=== PATIENT | female | born 1995 | race Caucasian/White ===

== ENCOUNTER 2018-04-06 19:27 | Emergency (ER) | payer SELFPAY ==
[~2018-04-06] VITALS: Ht 154.9 cm; Wt 81.8 kg
[2018-04-06 19:28] VITALS: BP 137/90
--- NOTE | 2018-04-06 22:05 | ED PDOC ---
Post-Departure Follow-Up PT LEFT WITHOUT BEING SEEN BY A PROVIDER. PT WAS BROUGHT INTO AN RCE ROOM AT [facility] E OF [facility] FOR AN EKG. THIS WAS PERFORMED AT THAT TIME, UNDER MY ORDER FOR THE EKG. THE EKG WAS READ BY A PROVIDER AND DEEMED APPROPRIATE TO WAIT IN THE WAITING ROOM, DUE TO LACK OF ROOMS FOR ACTIVE PATIENTS. WHEN PT WAS BROUGHT BACK INTO AN RCE ROOM TO BE SEEN, SHE COULD BE HEARD FROM THE PROVIDER DESK IN [facility], YELLING, CURSING AND ANNOYED THAT SHE CAME IN BY AMBULANCE AND HAD NOT BEEN SEEN YET. SECURITY WAS INFORMED AND THEY STOOD BY THE MTA DESK UNTIL THE SITUATION DE-ESCALATED. SEE NURSING NOTE FOR ENCOUNTER. AT THAT TIME, PT WALKED OUT OF HER RCE ROOM AND INTO THE WAITING ROOM AND LEFT THE FACILITY. PT WAS NOT SEEN BY A PROVIDER. THE EKG DID NOT SHOW ANY ACUTE CHANGES. NO RECOMMENDATIONS AT THIS TIME. CARLOTTA RAMSAY PA-C Apr 06, 2018 22:04
--- NOTE | 2018-04-07 08:11 | ECGEPIP ---
Stationary ECG Study [facility] - ED Test Date: 2018-04-06 Pat Name: MILAD VENEGAS Department: Room: - Gender: F Operational Review Sergeant: mamadou : 1995 Requested By: CARLOTTA Olivo PA-C Order Number: [id number] Reading MD: Cody Santoyo Measurements Intervals [place] Rate: 62 P: 29 IN: 171 QRS: 63 QRSD: 84 T: 29 QT: 411 QTc: 420 Interpretive Statements SINUS RHYTHM BENIGN EARLY REPOLARIZATION NO PRIORS FOR COMPARISON Electronically Signed On 04-07-2018 8:11:29 EST by Cody Santoyo
== END 2018-04-06 21:38 | disposition left against medical advice (07) ==
LOC: M ED 19:27
DX: Z53.29 Procedure and treatment not carried out because of patient's decision for other reasons (principal)

== ENCOUNTER → 2018-05-14 | Outpatient (CLI) | payer OTHER ==
--- NOTE | 2018-05-14 17:18 | REP ---
Clinical: Right foot pain Technique: AP, lateral, bilateral oblique views right foot . Findings: The osseous structures and joint spaces are intact and normal. There is no evidence for acute fracture or dislocation. Surrounding soft tissues are unremarkable. No subcutaneous emphysema or radiodense foreign body. Impression: Normal right foot series . No acute fracture or dislocation. Electronically Signed by Ted Cantrell MD 05/14/2018 05:09 P
== END ==
LOC: M WUC 16:56
PROVIDERS: ATTEND Physician Assistant
DX: M79.671 Pain in right foot (principal)

== ENCOUNTER → 2018-05-17 | Outpatient (CLI) | payer OTHER | LOC: M RAD 15:35 | PROVIDERS: ATTEND Physician Assistant | DX: Z53.9 Procedure and treatment not carried out, unspecified reason (principal) ==

== ENCOUNTER → 2018-05-31 | Outpatient (CLI) | payer OTHER ==
--- NOTE | 2018-05-31 11:55 | REP ---
Pelvic ultrasound including transabdominal, endovaginal and Doppler ultrasound assessment: The bladder is moderately distended. The uterus is anteverted and upper normal size measuring 929 x 5.6 x 6.8 cm. The endometrium is upper normal thickness measuring 15 mm. The myometrium is unremarkable. Right ovary: The the patient has a right nephrectomy. Left ovary: There is a 2.7 x 1.5 x 2.4 cm hemorrhagic cyst. Including this cyst the left ovary is normal size measuring 2.7 x 1.5 x 2.4 cm. With the Doppler ultrasound there is left ovarian vascular flow. The resistive index of the parenchymal arteries measures 0.61. There is a small volume of free fluid in the posterior cul-de-sac. Impression: Right oophorectomy. 2.7 cm left ovarian hemorrhagic cyst. There is vascular flow in the left ovary. Uterus upper normal size. Endometrium upper normal thickness. Electronically Signed by Abelardo Pleitez MD 05/31/2018 11:46 A
[2018-05-31 11:57] LABS: BASO % 0.7 % (0.0-1.0); EOS # 0.1 10^3/uL (0.0-0.50); EOS % 1.8 % (0.0-3.0); HEMATOCRIT 39.6 % (36.0-47.0); HEMOGLOBIN 12.2 g/dl (12.0-15.5); LYMPH # 1.1 10^3/uL (1.5-6.5); MEAN CORPUSCULAR HEMOGLOBIN 25.2 pg (27.0-33.0); MEAN CORPUSCULAR HGB CONC 30.8 g/dl (32.0-36.5); MEAN CORPUSCULAR VOLUME 81.6 fl (80.0-96.0); MONO # 0.2 10^3/uL (0.0-0.8); MONO % 3.9 % (0.0-5.0); NEUTROPHILS # 4.1 10^3/uL (1.8-7.7); NEUTROPHILS % 73.4 % (36.0-66.0); PLATELET COUNT, AUTOMATED 265 10^3/uL (150-450); RED BLOOD COUNT 4.85 10^6/uL (4.00-5.40); WHITE BLOOD COUNT 5.6 10^3/uL (4.0-10.0)
[2018-05-31 12:24] LABS: ALBUMIN 4.1 GM/DL (3.2-5.2); ALT/SGPT 24 U/L (12-78); BILIRUBIN,TOTAL 0.3 MG/DL (0.2-1.0); BLOOD UREA NITROGEN 15 MG/DL (7-18); CALCIUM LEVEL 9.3 MG/DL (8.5-10.1); CARBON DIOXIDE LEVEL 26 MEQ/L (21-32); CHLORIDE LEVEL 108 MEQ/L (98-107); CREATININE FOR GFR 0.73 MG/DL (0.55-1.30); GLOMERULAR FILTRATION RATE > 60.0 (>60); GLUCOSE, FASTING 96 MG/DL (70-100); POTASSIUM SERUM 4.8 MEQ/L (3.5-5.1); SODIUM LEVEL 140 MEQ/L (136-145); TOTAL PROTEIN 7.9 GM/DL (6.4-8.2)
== END ==
LOC: M LAB 10:52
PROVIDERS: ATTEND Physician Assistant
DX: R10.32 Left lower quadrant pain (principal); Z90.5 Acquired absence of kidney; N83.202 Unspecified ovarian cyst, left side

== ENCOUNTER → 2018-05-31 | Outpatient (REF) | payer OTHER ==
[2018-05-31 15:16] LABS: CHLAMYDIA DNA AMPLIFICATION NEGATIVE (NEGATIVE); GC DNA AMPLIFICATION NEGATIVE (NEGATIVE)
== END ==
LOC: M LAB REF 12:26
PROVIDERS: ATTEND Physician Assistant
DX: R10.32 Left lower quadrant pain (principal)

== ENCOUNTER → 2018-07-12 | Outpatient (CLI) | payer OTHER ==
[2018-07-12 16:30] LABS: HEMATOCRIT 34.7 % (36.0-47.0); HEMOGLOBIN 10.8 g/dl (12.0-15.5)
== END ==
LOC: M WUC 15:01
PROVIDERS: ATTEND Physical Medicine & Rehabilitation
DX: Z01.818 Encounter for other preprocedural examination (principal); D64.9 Anemia, unspecified

== ENCOUNTER → 2018-08-11 | Outpatient (CLI) | payer OTHER ==
[2018-08-11 20:13] LABS: BASO # 0.1 10^3/uL (0.0-0.2); BASO % 1.9 % (0.0-1.0); EOS # 0.2 10^3/uL (0.0-0.50); HEMATOCRIT 34.5 % (36.0-47.0); LYMPH # 1.1 10^3/uL (1.5-6.5); LYMPH % 34.9 % (24.0-44.0); MEAN CORPUSCULAR HGB CONC 31.9 g/dl (32.0-36.5); MEAN CORPUSCULAR VOLUME 81.6 fl (80.0-96.0); MONO # 0.3 10^3/uL (0.0-0.8); MONO % 8.4 % (0.0-5.0); NEUTROPHILS # 1.6 10^3/uL (1.8-7.7); NEUTROPHILS % 49.5 % (36.0-66.0); PLATELET COUNT, AUTOMATED 325 10^3/uL (150-450); RED BLOOD COUNT 4.23 10^6/uL (4.00-5.40); WHITE BLOOD COUNT 3.2 10^3/uL (4.0-10.0)
[2018-08-11 20:29] LABS: HEMOGLOBIN A1c 5.5 %
[2018-08-11 20:41] LABS: ALT/SGPT 24 U/L (12-78); BILIRUBIN,TOTAL 0.3 MG/DL (0.2-1.0); BLOOD UREA NITROGEN 16 MG/DL (7-18); CALCIUM LEVEL 8.3 MG/DL (8.5-10.1); CARBON DIOXIDE LEVEL 26 MEQ/L (21-32); CHLORIDE LEVEL 109 MEQ/L (98-107); CHOLESTEROL LEVEL 147 MG/DL (<200); CHOLESTEROL RISK RATIO 3.769 (<5); CREATININE FOR GFR 0.66 MG/DL (0.55-1.30); GLOMERULAR FILTRATION RATE > 60.0 (>60); GLUCOSE, FASTING 71 MG/DL (70-100); HDL CHOLESTEROL 39 MG/DL (>40); LDL CHOLESTEROL 94 MG/DL (<100); NON-HDL-C 108 MG/DL; SODIUM LEVEL 142 MEQ/L (136-145); THYROID STIMULATING HORMONE 0.288 uIU/ML (0.358-3.740); TOTAL PROTEIN 7.5 GM/DL (6.4-8.2); TRIGLYCERIDES LEVEL 70 MG/DL (<150)
[2018-08-11 20:43] LABS: TOTAL 25(OH) VITAMIN D 15.8 NG/ML (30.0-100.0)
[2018-08-11 21:15] LABS: APPEARANCE, URINE MANUAL HAZY (CLEAR); COLOR, URINE MANUAL YELLOW (YELLOW)
[2018-08-11 21:17] LABS: BILIRUBIN, URINE MANUAL NEGATIVE (NEGATIVE); BLOOD URINE MANUAL TRACE (NEGATIVE); GLUCOSE, URINE (UA) MANUAL NEGATIVE (NEGATIVE); KETONE, URINE MANUAL NEGATIVE (NEGATIVE); LEUKOCYTE ESTERASE, URINE MAN NEGATIVE (NEGATIVE); NITRITE, URINE MANUAL NEGATIVE (NEGATIVE); PROTEIN, URINE MANUAL NEGATIVE (NEGATIVE); SPECIFIC GRAVITY,URINE MANUAL 1.025 (1.002-1.035); UROBILINOGEN, URINE MANUAL NORMAL (NORMAL)
[2018-08-11 21:19] LABS: RBC, URINE 0-1 /hpf (0-3); WBC, URINE NONE SEEN /hpf (0-3)
[2018-08-11 21:20] LABS: BACTERIA, URINE SMALL AMOUNT; HYALINE CAST, URINE NONE SEEN /lpf (0-1); SQUAMOUS EPITHELIAL CELL URINE SMALL AMOUNT /hpf (SMALL AMT)
[2018-08-11 22:18] LABS: CHLAMYDIA DNA AMPLIFICATION NEGATIVE (NEGATIVE); GC DNA AMPLIFICATION NEGATIVE (NEGATIVE)
[2018-08-12 10:22] LABS: HEPATITIS B SURFACE ANTIGEN NEGATIVE (NEGATIVE)
[2018-08-12 10:48] LABS: HEPATITIS C VIRUS ABY INDEX 0.1 INDEX (<0.8)
[2018-08-12 10:49] LABS: HEPATITIS B CORE ANTIBODY IGM NEGATIVE (NEGATIVE)
[2018-08-12 10:51] LABS: HEPATITIS A ANTIBODY IGM NEGATIVE (NEGATIVE); HIV 1&2 SCREEN CENTAUR NEGATIVE (NEGATIVE)
[2018-08-16 00:06] LABS: HSV TYPE II IgG SPECIFIC 8.66 index (0.00-0.90); Lyme Disease IgG Ab 18 kDa Ban Absent (.); Lyme Disease IgG Ab 23 kDa Ban Absent (.); Lyme Disease IgG Ab 28 kDa Ban Absent (.); Lyme Disease IgG Ab 30 kDa Ban Absent (.); Lyme Disease IgG Ab 39 kDa Ban Absent (.); Lyme Disease IgG Ab 41 kDa Ban Absent (.); Lyme Disease IgG Ab 45 kDa Ban Absent (.); Lyme Disease IgG Ab 58 kDa Ban Absent (.); Lyme Disease IgG Ab 66 kDa Ban Absent (.); Lyme Disease IgG Ab 93 kDa Ban Absent (.); Lyme Disease IgG West Blot Int Negative (.); Lyme Disease IgG/IgM Antibodie <0.91 ISR (0.00-0.90); Lyme Disease IgM Ab 23 kDa Ban Present (.); Lyme Disease IgM Ab 39 kDa Ban Absent (.); Lyme Disease IgM Ab 41 kDa Ban Absent (.); Lyme Disease IgM Ab Quantitati 1.11 index (0.00-0.79); Lyme Disease IgM West Blot Int Negative (.)
== END ==
LOC: M WUC 17:55
PROVIDERS: ATTEND Family Medicine
DX: Z11.3 Encounter for screening for infections with a predominantly sexual mode of transmission (principal); Z13.228 Encounter for screening for other metabolic disorders

== ENCOUNTER → 2018-12-19 | Outpatient (REF) | payer OTHER ==
[2018-12-19 22:36] LABS: CHLAMYDIA DNA AMPLIFICATION NEGATIVE (NEGATIVE); GC DNA AMPLIFICATION NEGATIVE (NEGATIVE)
== END ==
LOC: M LAB REF 15:23
PROVIDERS: ATTEND Physician Assistant
DX: R39.15 Urgency of urination (principal)

== ENCOUNTER → 2018-12-21 | Outpatient (CLI) | payer OTHER | LOC: M WUC 10:18 | PROVIDERS: ATTEND Physician Assistant | DX: R39.15 Urgency of urination (principal) ==

== ENCOUNTER → 2019-01-10 | Outpatient (CLI) | payer OTHER ==
--- NOTE | 2019-01-10 15:43 | REP ---
RIGHT KNEE, TWO VIEWS: FINDINGS: There is no evidence of an acute fracture, dislocation or intrinsic bone disease. IMPRESSION: No fracture or dislocation. Electronically Signed by Abelardo Diop MD 01/10/2019 04:15 P
== END ==
LOC: M WUC 15:09
PROVIDERS: ATTEND Physician Assistant
DX: S70.01XA Contusion of right hip, initial encounter (principal); X58.XXXA Exposure to other specified factors, initial encounter

== ENCOUNTER → 2019-01-10 | Outpatient (CLI) | payer OTHER ==
[2019-01-10 17:27] LABS: FREE T4 1.01 NG/DL (0.76-1.46)
[2019-01-10 17:28] LABS: TOTAL T3 109.9 NG/DL (60.0-181.0)
[2019-01-11 09:23] LABS: THYROID PEROXIDASE ANTIBODY < 28.0 U/ML (<60.0)
== END ==
LOC: M WUC 15:06
PROVIDERS: ATTEND Nurse Practitioner Family
DX: R94.6 Abnormal results of thyroid function studies (principal)

== ENCOUNTER → 2019-01-17 | Outpatient (REF) | payer OTHER | LOC: M LAB REF 14:15 | PROVIDERS: ATTEND Internal Medicine Endocrinology, Diabetes & Metabolism | DX: E04.1 Nontoxic single thyroid nodule (principal) ==

== ENCOUNTER → 2019-01-22 | Outpatient (REF) | payer OTHER ==
[2019-01-22 21:20] LABS: CHLAMYDIA DNA AMPLIFICATION NEGATIVE (NEGATIVE); GC DNA AMPLIFICATION NEGATIVE (NEGATIVE)
== END ==
LOC: M LAB REF 11:46
PROVIDERS: ATTEND Physician Assistant
DX: R30.0 Dysuria (principal)

== ENCOUNTER → 2019-02-03 | Outpatient (REF) | payer OTHER ==
[~2019-02-03] MED LIST: CITA20TA6 PO; PROAAER10 INH
[2019-02-03 19:33] LABS: APPEARANCE, URINE CLEAR (CLEAR); BACTERIA, URINE AUTO NEGATIVE (NEGATIVE); BILIRUBIN, URINE AUTO NEGATIVE (NEGATIVE); BLOOD, URINE BLOOD 2+ (NEGATIVE); COLOR, URINE YELLOW (YELLOW); GLUCOSE, URINE (UA) AUTO NEGATIVE (NEGATIVE); KETONE, URINE AUTO NEGATIVE (NEGATIVE); LEUKOCYTE ESTERASE, URINE AUTO NEGATIVE (NEGATIVE); MUCUS, URINE SMALL (NEGATIVE); NITRITE, URINE AUTO NEGATIVE (NEGATIVE); PROTEIN, URINE AUTO NEGATIVE (NEGATIVE); RBC, URINE AUTO 0 /HPF (0-3); SQUAMOUS EPITHELIAL CELL UR AU 2 /HPF (0-6); UROBILINOGEN, URINE AUTO 0.2 mg/dL (0.0-2.0); WBC, URINE AUTO 0 /HPF (0-3)
== END ==
LOC: M LAB REF 11:14
PROVIDERS: ATTEND Family Medicine
DX: R35.0 Frequency of micturition (principal)

== ENCOUNTER 2019-02-22 10:05 | Day surgery (SDC) | payer OTHER ==
[~2019-02-22] VITALS: Ht 154.9 cm; Wt 95.3 kg
[~2019-02-22 10:05] MED LIST changes: +BUPIVACAINE HCL 0.5% 10 ML VIAL As Ordered ONE; +LIDOCAINE 1% MDV 20ML VIAL As Ordered ONE; +LR 1,000 ML IV ONE; +ceFAZolin SOD 2 GM in IV 1 EA IV ONE; +dexameTHASONE 4 MG/ML 1ML VIAL (J1100) As Ordered ONE
[2019-02-22] MEDS ORDERED: fentaNYL 100 MCG/2 ML INJECTION (J3010) As Ordered ONE (10:49)
[2019-02-22] MEDS ORDERED: MIDAZOLAM INJ 2 MG/2 ML VIAL (J2250) As Ordered ONE (10:49)
[2019-02-22] MEDS ORDERED: PROPOFOL 200 MG/20 ML VIAL As Ordered ONE (10:50)
[2019-02-22] MEDS ORDERED: LIDOCAINE 2% INJ 100 MG/5 ML SDV (FOR ANES.) As Ordered ONE (10:50)
[2019-02-22] MEDS ORDERED: ONDANSETRON 4MG/2ML VIAL (J2405) As Ordered ONE (12:26)
[2019-02-22] MEDS ORDERED: PHENYLephrine HCL 500 MCG/5 ML (100MCG/ML) SYRINGE (J2370) As Ordered ONE (12:46)
[2019-02-22] MEDS ORDERED: OXYC1TAB23 PO (12:52)
[2019-02-22 13:40] VITALS: BP 135/84
--- NOTE | 2019-02-23 07:00 | RO ---
DATE OF PROCEDURE: 02/22/2019 PREPROCEDURE DIAGNOSIS: Right foot painful screw. POSTPROCEDURE DIAGNOSIS: Right foot painful screw. PROCEDURE: Right foot screw removal. SURGEON: Dr. Moise Orr. SHIRT PRESSER: None. ANESTHESIA: Monitored anesthesia. Preoperative injection of 11 mL of 1:1 mixture of 1% lidocaine plain and 0.5% Marcaine plain. . ESTIMATED BLOOD LOSS: Minimal. MATERIALS: #4-0 Vicryl and #4-0 nylon. INJECTABLES: 1 mL Decadron, 4 mg COMPLICATIONS: None. CONDITION: Stable. Ruth Brice is a 23-year-old female who had a bunionectomy last year. She continues to have pain at the screw site. She presents today for screw removal. Patient's side and site were identified and marked in the preoperative holding area. Consent was reviewed and obtained. The risks, complications and alternatives of the procedure was explained to the patient in detail. All questions were answered. DESCRIPTION OF PROCEDURE: The patient was brought to the operating room and placed on the operating room and placed on the operating room table in the supine position. Monitored anesthesia care was delivered by the anesthesia team. Preoperative injection of 11 mL of 1:1 mixture of 1% lidocaine plain and 0.5% Marcaine plain were injected in the right foot. The right foot was prepped and draped in the normal sterile fashion. A tourniquet was applied to the right ankle and inflated at 250 mmHg. An incision was made at the previous scar site using #15 blade. Dissection was carried down till the screw was identified. The screw was removed using the Arthrex 35 screwdriver without complications. The site was then irrigated with normal saline and the incision was repaired with #4-0 Vicryl and #4-0 nylon. Sterile dressings were applied. Tourniquet was deflated. Patient was brought to the postanesthesia care unit (PACU) all vitals signs stable, neurovascular status intact. She will be weightbearing as tolerated postoperatively. She will followup in the office in 2 days.
== END 2019-02-22 13:45 | disposition home or self-care (01) ==
LOC: M SDC 10:05
PROVIDERS: ATTEND Podiatrist Foot & Ankle Surgery
DX: T84.84XA Pain due to internal orthopedic prosthetic devices, implants and grafts, initial encounter (principal); M79.671 Pain in right foot; F31.9 Bipolar disorder, unspecified; J45.909 Unspecified asthma, uncomplicated; K21.9 Gastro-esophageal reflux disease without esophagitis; D64.9 Anemia, unspecified; F17.218 Nicotine dependence, cigarettes, with other nicotine-induced disorders; Z79.899 Other long term (current) drug therapy; Y79.2 Prosthetic and other implants, materials and accessory orthopedic devices associated with adverse incidents; Y83.1 Surgical operation with implant of artificial internal device as the cause of abnormal reaction of the patient, or of later complication, without mention of misadventure at the time of the procedure
CPT/HCPCS: 20680; 81025; J0690; J1100; J2250; J2370; J2405; J3010

== ENCOUNTER → 2019-03-14 | Outpatient (CLI) | payer OTHER ==
[~2019-03-14] MED LIST changes: +ALBU83IN INH; +AUGM875T28 PO; -BUPIVACAINE HCL 0.5% 10 ML VIAL As Ordered ONE; -LIDOCAINE 1% MDV 20ML VIAL As Ordered ONE; -LR 1,000 ML IV ONE; +OXYC1TAB23 PO; +PRED5TA PO; -ceFAZolin SOD 2 GM in IV 1 EA IV ONE; -dexameTHASONE 4 MG/ML 1ML VIAL (J1100) As Ordered ONE
== END ==
LOC: M WUC 12:20
PROVIDERS: ATTEND Physician Assistant
DX: N91.2 Amenorrhea, unspecified (principal)

== ENCOUNTER 2019-03-17 01:59 | Emergency (ER) | payer OTHER ==
[~2019-03-17] VITALS: Ht 154.9 cm; Wt 94.0 kg
[~2019-03-17 01:59] MED LIST changes: -ALBU83IN INH; -AUGM875T28 PO; -PRED5TA PO
[2019-03-17] MEDS ORDERED: AUGM875T28 PO (02:20)
[2019-03-17] MEDS ORDERED: PRED5TA PO (02:20)
[2019-03-17] MEDS ORDERED: ALBU83IN INH (02:20)
[2019-03-17 04:18] VITALS: BP 124/78
[2019-03-17] MEDS ORDERED: PSEUDOEPHEDRINE 30 MG TAB PO ONE (04:45)
== END 2019-03-17 04:59 | disposition home or self-care (01) ==
LOC: M ED 01:59
DX: T70.0XXA Otitic barotrauma, initial encounter (principal); Y04.8XXA Assault by other bodily force, initial encounter; Y92.89 Other specified places as the place of occurrence of the external cause; Y07.9 Unspecified perpetrator of maltreatment and neglect; F17.210 Nicotine dependence, cigarettes, uncomplicated

== ENCOUNTER → 2019-04-05 | Outpatient (CLI) | payer OTHER ==
[~2019-04-05] MED LIST changes: +ALBU83IN INH; +AUGM875T28 PO; +PRED5TA PO
== END ==
LOC: M LAB 13:56
PROVIDERS: ATTEND Family Medicine
DX: O36.80X0 Pregnancy with inconclusive fetal viability, not applicable or unspecified (principal)

== ENCOUNTER → 2019-04-06 | Outpatient (CLI) | payer OTHER ==
--- NOTE | 2019-04-06 11:00 | REP ---
Clinical: Acute pelvic pain for dating and viability. Technique: Transabdominal and transvaginal first trimester obstetrical ultrasound with color Doppler evaluation. Findings: Early intrauterine identified. Gestational sac with yolk sac and pole noted. CRL of 3 mm corresponds to 5 weeks 6 days gestational age with estimated date of delivery 12/01/2019. heart rate equals 114 beats per minute. Uterus is anteverted and measures 10.7 x 6.3 x 7.0 cm. The bilateral ovaries are normal in appearance and vascularity. 2.1 x 2.0 x 2.6 cm corpus luteal cyst noted in the left ovary. No pelvic fluid. Impression: 1. Early intrauterine at 5 weeks 6 days gestational age. 2. Complete anatomical assessment should be performed at 19-20 weeks. Electronically Signed by Ted Cantrell MD 04/06/2019 10:51 A
== END ==
LOC: M RAD 09:24
PROVIDERS: ATTEND Family Medicine
DX: O36.80X0 Pregnancy with inconclusive fetal viability, not applicable or unspecified (principal); R10.2 Pelvic and perineal pain; Z3A.00 Weeks of gestation of pregnancy not specified

== ENCOUNTER → 2019-04-13 | Outpatient (REF) | payer OTHER ==
[2019-04-13 16:53] LABS: HEMATOCRIT 37.6 % (36.0-47.0); MEAN CORPUSCULAR HEMOGLOBIN 26.4 pg (27.0-33.0); MEAN CORPUSCULAR HGB CONC 31.9 g/dl (32.0-36.5); MEAN CORPUSCULAR VOLUME 82.8 fl (80.0-96.0); PLATELET COUNT, AUTOMATED 445 10^3/uL (150-450); RED BLOOD COUNT 4.54 10^6/uL (4.00-5.40); WHITE BLOOD COUNT 5.7 10^3/uL (4.0-10.0)
[2019-04-14 08:36] LABS: HEPATITIS B SURFACE ANTIGEN NEGATIVE (NEGATIVE); HEPATITIS C VIRUS ABY INDEX < 0.0 INDEX (<0.8); HIV 1&2 SCREEN CENTAUR NEGATIVE (NEGATIVE); RUBELLA IgG QUALITATIVE IMMUNE (IMMUNE)
== END ==
LOC: M LAB REF 09:51
PROVIDERS: ATTEND Obstetrics & Gynecology
DX: Z34.81 Encounter for supervision of other normal pregnancy, first trimester (principal)

== ENCOUNTER → 2019-05-01 | Outpatient (CLI) | payer OTHER ==
--- NOTE | 2019-05-01 21:51 | REP ---
Clinical: Dating and viability. Technique: Real time transabdominal first trimester obstetrical ultrasound with color Doppler evaluation. Comparison: 04/06/2019. Findings: Ultrasound examination demonstrates single live early intrauterine . CRL of 29 mm corresponds to 9 weeks 5 days gestational age with estimated date of delivery 11/29/2019. heart rate equals 160 beats per minute. Small subchorionic hemorrhage measures 26 x 10 x 10 mm. Maternal ovaries are normal. Impression: Single live early intrauterine at 9 weeks 5 days gestational age. Small subchorionic hemorrhage. Electronically Signed by Ted Cantrell MD 05/01/2019 09:43 P
== END ==
LOC: M RAD 15:08
PROVIDERS: ATTEND Obstetrics & Gynecology
DX: Z34.01 Encounter for supervision of normal first pregnancy, first trimester (principal); Z3A.09 9 weeks gestation of pregnancy

== ENCOUNTER → 2019-05-15 | Outpatient (REF) | payer OTHER ==
[2019-05-15 17:15] LABS: HEMATOCRIT 37.4 % (36.0-47.0); MEAN CORPUSCULAR HEMOGLOBIN 26.7 pg (27.0-33.0); MEAN CORPUSCULAR HGB CONC 32.1 g/dl (32.0-36.5); MEAN CORPUSCULAR VOLUME 83.3 fl (80.0-96.0); PLATELET COUNT, AUTOMATED 321 10^3/uL (150-450); RED BLOOD COUNT 4.49 10^6/uL (4.00-5.40); WHITE BLOOD COUNT 5.9 10^3/uL (4.0-10.0)
[2019-05-15 18:23] LABS: HEPATITIS B SURFACE ANTIGEN NEGATIVE (NEGATIVE); HEPATITIS C VIRUS ABY INDEX 0.1 INDEX (<0.8); HIV 1&2 SCREEN CENTAUR NEGATIVE (NEGATIVE); RUBELLA IgG QUALITATIVE IMMUNE (IMMUNE)
[2019-05-15 18:51] LABS: CHLAMYDIA DNA AMPLIFICATION NEGATIVE (NEGATIVE); GC DNA AMPLIFICATION NEGATIVE (NEGATIVE)
== END ==
LOC: M PLALAB 14:35
PROVIDERS: ATTEND Advanced Practice Midwife
DX: Z34.91 Encounter for supervision of normal pregnancy, unspecified, first trimester (principal)

== ENCOUNTER → 2019-05-24 | Outpatient (CLI) | payer OTHER | LOC: M WUC 16:54 | PROVIDERS: ATTEND Advanced Practice Midwife | DX: Z34.81 Encounter for supervision of other normal pregnancy, first trimester (principal); Z3A.00 Weeks of gestation of pregnancy not specified ==

== ENCOUNTER 2019-06-16 09:17 | Emergency (ER) | payer OTHER ==
[~2019-06-16] VITALS: Ht 154.9 cm; Wt 95.5 kg
[2019-06-16] MEDS ORDERED: ONDANSETRON 4MG/2ML VIAL IV ONE ×2 (10:00→16:15)
[2019-06-16] MEDS ORDERED: NS 1,000 ML IV ONE (10:00)
[2019-06-16 10:14] LABS: BASO % 0.6 % (0.0-1.0); HEMATOCRIT 35.7 % (36.0-47.0); HEMOGLOBIN 11.8 g/dl (12.0-15.5); LYMPH # 0.5 10^3/uL (1.5-5.0); LYMPH % 12.7 % (24.0-44.0); MEAN CORPUSCULAR HEMOGLOBIN 26.6 pg (27.0-33.0); MEAN CORPUSCULAR HGB CONC 33.1 g/dl (32.0-36.5); MEAN CORPUSCULAR VOLUME 80.4 fl (80.0-96.0); MONO # 0.1 10^3/uL (0.0-0.8); MONO % 3.4 % (0.0-5.0); NEUTROPHILS # 2.9 10^3/uL (1.5-8.5); PLATELET COUNT, AUTOMATED 289 10^3/uL (150-450); RED BLOOD COUNT 4.44 10^6/uL (4.00-5.40); WHITE BLOOD COUNT 3.5 10^3/uL (4.0-10.0)
[2019-06-16] MEDS ORDERED: OMEP-218 PO (10:19)
[2019-06-16] MEDS ORDERED: PROM25TA12 PO (10:19)
[2019-06-16] MEDS ORDERED: PNV1TAB6 PO (10:21)
[2019-06-16] MEDS ORDERED: COLA100C5 PO (10:22)
[2019-06-16] MEDS ORDERED: TUMS500C PO (10:22)
[2019-06-16] MEDS ORDERED: MAALOX 30 ML SUSP *UDC PO ONE (10:30)
[2019-06-16] MEDS ORDERED: ACETAMINOPHEN 325 MG TAB PO ONE (10:30)
[2019-06-16 10:42] LABS: ALBUMIN 3.5 GM/DL (3.2-5.2); ALT/SGPT 29 U/L (12-78); BILIRUBIN,DIRECT < 0.1 MG/DL (0.0-0.2); BILIRUBIN,TOTAL 0.2 MG/DL (0.2-1.0); BLOOD UREA NITROGEN 6 MG/DL (7-18); CALCIUM LEVEL 9.3 MG/DL (8.5-10.1); CARBON DIOXIDE LEVEL 21 MEQ/L (21-32); CHLORIDE LEVEL 106 MEQ/L (98-107); CK-MB VALUE MASS < 1.0 NG/ML (<3.6); CPK CREATINE PHOSPHOKINASE 91 U/L (26-192); CREATININE FOR GFR 0.62 MG/DL (0.55-1.30); GLOMERULAR FILTRATION RATE > 60.0 (>60); GLUCOSE, FASTING 155 MG/DL (70-100); LIPASE 127 U/L (73-393); POTASSIUM SERUM 3.6 MEQ/L (3.5-5.1); SODIUM LEVEL 138 MEQ/L (136-145); TOTAL PROTEIN 7.6 GM/DL (6.4-8.2); TROPONIN I < 0.02 NG/ML (< 0.10)
[2019-06-16] MEDS ORDERED: PROMETHAZINE INJ 25 MG/ML VIAL (J2550) IV ONE (10:45)
[2019-06-16 12:53] LABS: AMPHETAMINES LEVEL URINE NEGATIVE (NEGATIVE); BARBITURATES URINE NEGATIVE (NEGATIVE); BENZODIAZEPINES URINE NEGATIVE (NEGATIVE); CANNABINOIDS URINE POSITIVE (NEGATIVE); COCAINE METABOLITE URINE NEGATIVE (NEGATIVE); METHADONE URINE NEGATIVE (NEGATIVE); OPIATES URINE NEGATIVE (NEGATIVE); PHENCYCLIDINE URINE NEGATIVE (NEGATIVE)
[2019-06-16] MEDS ORDERED: MULTIVITAMIN -ADULT INJECTION 10 ML, THIAMINE INJection 100 MG, FOLIC ACID 1 MG in NS 1... IV ONE (14:45)
--- NOTE | 2019-06-16 14:45 | REP ---
RIGHT UPPER QUADRANT SONOGRAPHY: HISTORY: Epigastric pain. Rule out residual stone/CBD. 16 weeks gestation. No comparison sonography. FINDINGS: The gallbladder surgically absent. Scan quality is inhibited by the inability patient to cooperate. heart rate is documented during exam at 152 beats per minute. Scanning through the right upper quadrant of the abdomen demonstrates no focal liver lesion. Common bile duct is normal measuring 0.5 cm in greatest diameter. No pancreatic abnormality is observed. There is no evidence of ascites or right renal abnormality. The right kidney measures 11.0 x 5.3 x 4.5 cm. There is no evidence of hydronephrosis. IMPRESSION: Negative right upper quadrant sonography post cholecystectomy. Normal CBD 5 mm. Electronically Signed by Napoleon Pizano MD 06/16/2019 04:19 P
[2019-06-16 16:23] VITALS: BP 111/64
--- NOTE | 2019-06-16 22:54 | ECGEPIP ---
[facility] - ED Test Date: 2019-06-16 Pat Name: MILAD VENEGAS Department: Room: - Gender: Female Cost And Risk Analysis Manager: [facility] : 1995 Requested By: CRISTOPHER Norris PA-C Order Number: [id number] Reading MD: Cody Santoyo Measurements Intervals [place] Rate: 82 P: 17 ND: 164 QRS: 76 QRSD: 90 T: 48 QT: 369 QTc: 432 Interpretive Statements SINUS RHYTHM WITH SINUS ARRHYTHMIA MODERATE T-WAVE ABNORMALITY, CONSIDER ANTERIOR ISCHEMIA Electronically Signed on 06-16-2019 22:53:39 EDT by Cody Santoyo
== END 2019-06-16 16:35 | disposition home or self-care (01) ==
LOC: M ED 09:17
DX: O26.892 Other specified pregnancy related conditions, second trimester (principal); R10.13 Epigastric pain; O21.9 Vomiting of pregnancy, unspecified; O99.322 Drug use complicating pregnancy, second trimester; O99.512 Diseases of the respiratory system complicating pregnancy, second trimester; O99.342 Other mental disorders complicating pregnancy, second trimester; Z3A.16 16 weeks gestation of pregnancy; Z91.040 Latex allergy status; Z79.51 Long term (current) use of inhaled steroids; Z79.899 Other long term (current) drug therapy
CPT/HCPCS: 76705; 80048; 80076; 80307; 81001; 82550; 82553; 83690; 85025; 93005; 96361; 96365; 96375; 96376; 99284; J2405; J3411

== ENCOUNTER 2019-06-20 11:00 | Inpatient (IN) | payer OTHER ==
[~2019-06-20] VITALS: Ht 154.9 cm; Wt 94.2 kg
[~2019-06-20 11:00] MED LIST changes: +COLA100C5 PO; +OMEP-218 PO; +PNV1TAB6 PO; +PROM25TA12 PO; +TUMS500C PO
[2019-06-20] MEDS ORDERED: METO10TA2 PO (11:08)
[2019-06-20] MEDS ORDERED: FAMO1TAB11 PO (11:08)
[2019-06-20] MEDS ORDERED: ONDANSETRON 4MG/2ML VIAL IV ONE ×2 (11:45→12:15)
[2019-06-20] MEDS ORDERED: NS 1,000 ML IV ONE (11:45)
[2019-06-20] MEDS ORDERED: ACETAMINOPHEN TAB 650MG DOSE (2X325MG) PO ONE (12:15)
[2019-06-20 12:20] LABS: BASO % 0.5 % (0.0-1.0); EOS % 0.3 % (0.0-3.0); HEMATOCRIT 36.8 % (36.0-47.0); HEMOGLOBIN 12.7 g/dl (12.0-15.5); LYMPH # 1.3 10^3/uL (1.5-5.0); LYMPH % 21.7 % (24.0-44.0); MEAN CORPUSCULAR HEMOGLOBIN 27.3 pg (27.0-33.0); MEAN CORPUSCULAR HGB CONC 34.5 g/dl (32.0-36.5); MONO # 0.6 10^3/uL (0.0-0.8); MONO % 9.8 % (0.0-5.0); NEUTROPHILS % 67.2 % (36.0-66.0); PLATELET COUNT, AUTOMATED 393 10^3/uL (150-450); RED BLOOD COUNT 4.66 10^6/uL (4.00-5.40); WHITE BLOOD COUNT 5.9 10^3/uL (4.0-10.0)
[2019-06-20 12:36] LABS: ALBUMIN 3.4 GM/DL (3.2-5.2); ALT/SGPT 86 U/L (12-78); AMYLASE 214 U/L (25-115); BILIRUBIN,DIRECT 0.2 MG/DL (0.0-0.2); BILIRUBIN,TOTAL 0.5 MG/DL (0.2-1.0); BLOOD UREA NITROGEN 7 MG/DL (7-18); CALCIUM LEVEL 9.2 MG/DL (8.5-10.1); CARBON DIOXIDE LEVEL 18 MEQ/L (21-32); CHLORIDE LEVEL 107 MEQ/L (98-107); CK-MB VALUE MASS < 1.0 NG/ML (<3.6); CPK CREATINE PHOSPHOKINASE 121 U/L (26-192); CREATININE FOR GFR 0.49 MG/DL (0.55-1.30); GLOMERULAR FILTRATION RATE > 60.0 (>60); GLUCOSE, FASTING 97 MG/DL (70-100); LIPASE 877 U/L (73-393); MB/CK RELATIVE INDEX 0.83 (< OR =4); POTASSIUM SERUM 3.4 MEQ/L (3.5-5.1); SODIUM LEVEL 137 MEQ/L (136-145); TOTAL PROTEIN 7.5 GM/DL (6.4-8.2); TROPONIN I < 0.02 NG/ML (< 0.10)
[2019-06-20 13:10] LABS: ETHYL ALCOHOL (ETHANOL) < 0.003 % (0.000-0.010)
--- NOTE | 2019-06-20 14:32 | REP ---
MRCP EXAMINATION: HISTORY: Epigastric pain. Elevated lipase. 16 weeks gestation. Comparison is made with a hepatic sonography from 06/16/2019. TECHNIQUE: MRCP exam is acquired and maximal intensity projection images are generated. MRCP FINDINGS: The gravid uterus is partially seen. A fundal placental location is noted. There is no focal hepatic or splenic lesion visualized. The gallbladder is surgically absent. The intrahepatic and extrahepatic bile ducts are normal in caliber ear. Pancreatic duct is not dilated. No pancreatic lesion is seen. IMPRESSION: Normal MRCP exam. No biliary or pancreatic ductal dilation is seen. Gallbladder surgically absent. Electronically Signed by Napoleon Pizano MD 06/20/2019 04:40 P
[2019-06-20 14:38] LABS: AMPHETAMINES LEVEL URINE NEGATIVE (NEGATIVE); BARBITURATES URINE NEGATIVE (NEGATIVE); BENZODIAZEPINES URINE NEGATIVE (NEGATIVE); CANNABINOIDS URINE POSITIVE (NEGATIVE); COCAINE METABOLITE URINE NEGATIVE (NEGATIVE); METHADONE URINE NEGATIVE (NEGATIVE); OPIATES URINE NEGATIVE (NEGATIVE); PHENCYCLIDINE URINE NEGATIVE (NEGATIVE)
[2019-06-20] MEDS ORDERED: ALBUTEROL 90 MCG/ACT 8GM HFA INHALER INH PRN (15:45)
[2019-06-20 17:00] VITALS: BP 125/71
[2019-06-20] MEDS: NS 1,000 ML IV SCH ×2 (17:48→23:51)
[2019-06-20] MEDS: MORPHINE 4 MG/ML 1ML VIAL/SYRINGE (J2270) IV PRN ×2 (18:05→23:52)
[2019-06-20 20:14] VITALS: BP 123/81
[2019-06-20] MEDS: FAMOTIDINE 20 MG TAB PO SCH (20:30)
[2019-06-20] MEDS: METOCLOPRAMIDE INJ 10MG/2ML VIAL (J2765 PER 1) IV PRN (20:43)
[2019-06-21] VITALS: BP 122/71
[2019-06-21] MEDS: METOCLOPRAMIDE INJ 10MG/2ML VIAL (J2765 PER 1) IV PRN ×3 (02:56→21:19)
[2019-06-21] MEDS: NS 1,000 ML IV SCH (04:36)
[2019-06-21 06:00] VITALS: BP 102/56
[2019-06-21 07:21] LABS: HEMATOCRIT 31.8 % (36.0-47.0); HEMOGLOBIN 10.8 g/dl (12.0-15.5); MEAN CORPUSCULAR HEMOGLOBIN 26.9 pg (27.0-33.0); MEAN CORPUSCULAR VOLUME 79.3 fl (80.0-96.0); PLATELET COUNT, AUTOMATED 303 10^3/uL (150-450); RED BLOOD COUNT 4.01 10^6/uL (4.00-5.40); WHITE BLOOD COUNT 4.9 10^3/uL (4.0-10.0)
[2019-06-21] MEDS: MORPHINE 4 MG/ML 1ML VIAL/SYRINGE (J2270) IV PRN ×3 (07:47→21:20)
[2019-06-21 07:52] LABS: ALBUMIN 2.8 GM/DL (3.2-5.2); ALT/SGPT 73 U/L (12-78); AMYLASE 175 U/L (25-115); BILIRUBIN,TOTAL 0.5 MG/DL (0.2-1.0); BLOOD UREA NITROGEN 4 MG/DL (7-18); C REACTIVE PROTEIN QUANTITATIV < 0.30 MG/DL (0.00-0.30); CARBON DIOXIDE LEVEL 21 MEQ/L (21-32); CHLORIDE LEVEL 110 MEQ/L (98-107); CREATININE FOR GFR 0.47 MG/DL (0.55-1.30); GLOMERULAR FILTRATION RATE > 60.0 (>60); GLUCOSE, FASTING 108 MG/DL (70-100); LIPASE 1111 U/L (73-393); POTASSIUM SERUM 2.9 MEQ/L (3.5-5.1); SODIUM LEVEL 139 MEQ/L (136-145); TOTAL PROTEIN 6.1 GM/DL (6.4-8.2)
[2019-06-21] MEDS: ONDANSETRON 4MG/2ML VIAL IV PRN ×2 (08:21→13:26)
--- NOTE | 2019-06-21 08:56 | ECGEPIP ---
[facility] - ED Test Date: 2019-06-20 Pat Name: MILAD VENEGAS Department: Room: - Gender: Female Die Presser: KWABENA : 1995 Requested By: CRISTOPHER Norris PA-C Order Number: [id number] Reading MD: Marya Wallis Measurements Intervals [place] Rate: 76 P: 58 AL: 157 QRS: 63 QRSD: 88 T: 58 QT: 380 QTc: 429 Interpretive Statements SINUS RHYTHM POSSIBLE LEFT ATRIAL ENLARGEMENT NONSPECIFIC T-WAVE ABNORMALITY SIMILAR 06/16/19 Electronically Signed on 06-21-2019 8:56:23 EDT by Marya Wallis
[2019-06-21] MEDS: FAMOTIDINE 20 MG TAB PO SCH ×2 (09:00→21:06)
[2019-06-21] MEDS: POTASSIUM CHLORIDE 10 MEQ SR TABLET PO SCH (09:00)
[2019-06-21] MEDS: PRENATAL VITAMINS CHEWABLE TABLET PO SCH (09:00)
[2019-06-21] MEDS: DOCUSATE SODIUM 100 MG CAP PO SCH (09:00)
[2019-06-21] MEDS: KCL 40MEQ in NS 1000ML 1,000 ML IV SCH ×4 (09:37→23:31)
[2019-06-21] MEDS ORDERED: MORPHINE 4 MG/ML 1ML VIAL/SYRINGE (J2270) IV ONE (10:00)
[2019-06-21 10:10] VITALS: BP 144/92
[2019-06-21 10:13] LABS: HEPATITIS B SURFACE ANTIGEN NEGATIVE (NEGATIVE)
[2019-06-21 10:43] LABS: HEPATITIS A ANTIBODY IGM NEGATIVE (NEGATIVE)
[2019-06-21 12:35] LABS: BLOOD UREA NITROGEN 2 MG/DL (7-18); CARBON DIOXIDE LEVEL 22 MEQ/L (21-32); CHLORIDE LEVEL 107 MEQ/L (98-107); CREATININE FOR GFR 0.43 MG/DL (0.55-1.30); GLOMERULAR FILTRATION RATE > 60.0 (>60); GLUCOSE, FASTING 99 MG/DL (70-100); SODIUM LEVEL 138 MEQ/L (136-145)
[2019-06-21 14:00] VITALS: BP 122/82
[2019-06-21] MEDS ORDERED: KCL 10MEQ/100ML SWI (KRUN) 10 MEQ in IV 1 EA IV ONE ×2 (14:00→22:00)
[2019-06-21] MEDS: SUCRALFATE SUSP 1GM/10ML UD PO SCH ×2 (17:23→21:06)
[2019-06-21] MEDS: PANTOPRAZOLE 40MG VIAL (C9113 PER 1) IV SCH (17:24)
[2019-06-21 17:27] LABS: CHOLESTEROL LEVEL 148 MG/DL (<200); CHOLESTEROL RISK RATIO 3.609 (<5); HDL CHOLESTEROL 41 MG/DL (>40); LDL CHOLESTEROL 80 MG/DL (<100); NON-HDL-C 107 MG/DL; TRIGLYCERIDES LEVEL 134 MG/DL (<150)
--- NOTE | 2019-06-21 17:53 | CR.PDOC ---
General Date of Consultation: June 21, 2019 Consultation REASON FOR CONSULTATION/CHIEF COMPLAINT: Who presented to the hospital with complaints of nausea, vomiting and abdominal pain HISTORY OF PRESENT ILLNESS: Patient is a 23-year-old female who is 17 weeks (S2H0-4-5-8) with a PMHx of Asthma, Follicular Nodular Hyperplasia, Hx of Pancreatitis who presented to the emergency room with complaints of nausea, vomiting and abdominal pain. Patient reported that she presented to the hospital on 06/15 with complaint of nausea and vomiting and was found to have a lipase of 127. Patient had an ultrasound if her liver completed the head revealed a negative right upper quadrant sonography post cholecystectomy, normal CBD at 5 mm. Patient was subsequently discharged home with outpatient follow-up with her [employer] physician. Patient reported that over the weekend, she continued to experience worsening symptoms and presented to [facility] on Wednesday. At that time, patient was told that she had an elevated lipase and 5 to follow-up with her [employer]CH[employer] provider as an outpatient. On Wednesday, patient contacted her [employer] provider who had advised her to present to the emergency room for management of her elevated lipase. Patient was admitted to the [employer] service for suspected pancreatitis. Hospital services consultation for medical assistance with management of pancreatitis / fluid management. The patient has reported that she continues to experience profuse nausea and vomiting occurring throughout the day. Reported greater than 10 episodes described the vomitus as dark yellow/green without any evidence of blood. Rosendo carrasquillo reports that she has associated epigastric pain. Reported at a 10/10 stabbing without any radiation, worse with movement and some alleviation with pain medication. Patient denies any chest pain, short of breath, palpitations, has not experienced any constipation or diarrhea. Her last bowel movement was yesterday. Denies any urinary discomfort and has not experienced any fevers or chills. Patient reports that her last full meal was on , since that point, she has not been able to tolerate anything orally. ALLERGIES: Please see below. HOME MEDICATIONS: Please see below. PAST MEDICAL HISTORY: (H2K6-0-5-0) with a PMHx of Asthma, Follicular Nodular Hyperplasia, Hx of Pancreatitis PAST SURGICAL HISTORY: Patient has reported greater than 10 surgeries. However, she had refused to answer specifics because of her excruciating abdominal pain FAMILY HISTORY: - Noncontributory to current hospitalization SOCIAL HISTORY: - Patient reports that prior to her she drank alcohol socially. Patient also has reports that she smokes cigarettes but quit smoking 2 months ago after she had found out that she was - Patient still continues to use marijuana, most recent of which was on to help alleviate her symptoms of nausea / vomiting - Denies recent travel or sick contacts - Lives with children REVIEW OF SYSTEMS: 10 point review of systems complete, all negative otherwise stated in HPI PHYSICAL EXAMINATION: - Vitals: BP 122/82, HR 60, RR 19, Sat 99%RA, Temp 99.1F - General: Lying in bed, complaining of abdominal pain, AAOx3 - HEENT: NC, AT, PERRLA - CVS: RRR, +S1S2 - Lungs: Fair air entry bilaterally, No appreciable wheezing / rales / rhonchi - Abdomen: Soft, Non-distended, epigastric tenderness - Extremities: No lower extremity edema, No calf tenderness - Neuro: No focal motor or sensory deficit - Skin: No visible rashes LABORATORY DATA: Please see below. ASSESSMENT/PLAN: Abdominal pain - likely 2/2 acute pancreatitis, possibly 2/2 gastritis, possibly 2/2 hyperemesis gravidarum, possibly 2/2 cyclic vomiting syndrome - Patient presented to the emergency room after she had noted persistent nausea, vomiting, abdominal pain - Patient remains hemodynamically stable and afebrile - Physical reveals epigastric tenderness - Lipase is noted to be elevated at 1111 - UDS on 06/15 and 06/19 positive for Cannabinoids - Liver US 06/15: Negative right upper quadrant sonography post cholecystectomy. Normal CBD 5 mm. - MRCP 06/15: Normal MRCP exam. No biliary or pancreatic ductal dilation is seen. Gallbladder surgically absent. - Patient meets diagnosis criteria for acute pancreatitis (at least 2 out of 3 characteristics) - Will check triglyceride levels - Will readjust dietary status to strict nothing by mouth - Will increase IV fluid hydration to 250 cc/hr normal saline with potassium supplementation - c/w antiemetics with Zofran / Reglan - Will increase pain control regimen; will start [facility] protocol Hypokalemia - c/w Potassium supplementation in IV fluids - Repeat BMP at 8PM - Will try and supplement via PO route once nausea / vomiting has been controlled - 17 weeks - Currently being managed by [employer] primary team Asthma - No evidence of exacerbation at this time - c/w inhaled therapy as ordered Follicular Nodular Hyperplasia Gastrointestinal prophylaxis - Will start Protonix / Carafate DVT prophylaxis - c/w TEDs / Sequentials Vital Signs/I&O Vital Signs Date Time Temp Pulse Resp B/P (MAP) Pulse Ox O2 Delivery O2 Flow Rate FiO2 06/21/19 14:57 16 06/21/19 14:00 99.1 60 122/82 (95) 99 Room Air I&O- Last 24 Hours up to 6 AM 06/21/19 06:00 Intake Total 4285 ml Output Total 300 ml Balance 3985 ml Laboratory Data Labs 24H Laboratory Tests 2 06/21/19 07:00: Nucleated Red Blood Cells % (auto) 0.0, Anion Gap 8, Glomerular Filtration Rate > 60.0, Calcium Level 8.0L, Total Bilirubin 0.5, Aspartate Amino Transf (AST/SGOT) 29, Alanine Aminotransferase (ALT/SGPT) 73, Alkaline Phosphatase 56, C-Reactive Protein, Quantitative < 0.30, Total Protein 6.1L, Albumin 2.8L, Albumin/Globulin Ratio 0.85L, Amylase Level 175H, Lipase 1111H, Hepatitis A IgM Antibody NEGATIVE, Hepatitis B Surface Antigen NEGATIVE, Hepatitis C Antibody Index 0.0 06/21/19 12:01: Anion Gap 9, Glomerular Filtration Rate > 60.0, Calcium Level 8.0L, Triglycerides Level 134, Total Cholesterol 148, LDL Cholesterol 80, Non-HDL Cholesterol (LDL + VLDL) 107, Total HDL Cholesterol 41, Cholesterol/HDL Ratio 3.609 CBC/BMP Laboratory Tests 06/21/19 07:00 06/21/19 12:01 Allergies Coded Allergies: SEASONAL ALLERGIES (Verified Allergy, Unknown, 06/20/19) latex (Verified Allergy, Unknown, SKIN IRRITATION, 06/20/19) Home Medications Scheduled Docusate Sodium (Colace) 100 Mg Capsule, 100 MG PO DAILY, (Reported) Famotidine (Famotidine) 20 Mg Tablet, 20 MG PO BID, (Reported) Omeprazole (Omeprazole) 20 Mg Capsule.dr, 20 MG PO DAILY, (Reported) Vit,Calc76/Iron/Folic (Pnv 29-1 Tablet) 1 Each Tablet, 1 TAB PO DAILY, (Reported) Scheduled PRN Albuterol Sulfate (Proair Hfa) 8.5 Gm Hfa.aer.ad, 2 PUFF INH Q6H PRN for SHORTNESS OF BREATH, (Reported) Calcium Carbonate (Tums) 200 Mg Tab.chew, 400 MG PO QID PRN for GI UPSET, (Reported) Metoclopramide HCl (Metoclopramide HCl) 10 Mg Tablet, 10 MG PO QID PRN for NAUSEA, (Reported) CLAUS NJ MD June 21, 2019 17:53
[2019-06-21 20:36] LABS: BLOOD UREA NITROGEN < 1 MG/DL (7-18); CALCIUM LEVEL 8.5 MG/DL (8.5-10.1); CARBON DIOXIDE LEVEL 22 MEQ/L (21-32); CHLORIDE LEVEL 105 MEQ/L (98-107); CREATININE FOR GFR 0.42 MG/DL (0.55-1.30); GLOMERULAR FILTRATION RATE > 60.0 (>60); GLUCOSE, FASTING 81 MG/DL (70-100); SODIUM LEVEL 136 MEQ/L (136-145)
[2019-06-21 22:00] VITALS: BP 124/80
[2019-06-22] MEDS: ONDANSETRON 4MG/2ML VIAL IV PRN (01:54)
[2019-06-22] MEDS: MORPHINE 4 MG/ML 1ML VIAL/SYRINGE (J2270) IV PRN ×2 (01:57→16:57)
[2019-06-22] MEDS: KCL 40MEQ in NS 1000ML 1,000 ML IV SCH ×4 (05:03→19:56)
[2019-06-22] MEDS: PANTOPRAZOLE 40MG VIAL (C9113 PER 1) IV SCH ×2 (05:35→16:56)
[2019-06-22 06:00] VITALS: BP 107/68
[2019-06-22 06:18] LABS: BLOOD UREA NITROGEN < 1 MG/DL (7-18); CARBON DIOXIDE LEVEL 23 MEQ/L (21-32); CHLORIDE LEVEL 108 MEQ/L (98-107); CREATININE FOR GFR 0.39 MG/DL (0.55-1.30); GLOMERULAR FILTRATION RATE > 60.0 (>60); GLUCOSE, FASTING 80 MG/DL (70-100); MAGNESIUM LEVEL 1.3 MG/DL (1.8-2.4); POTASSIUM SERUM 3.9 MEQ/L (3.5-5.1); SODIUM LEVEL 139 MEQ/L (136-145)
[2019-06-22 07:22] LABS: BASO % 0.7 % (0.0-1.0); EOS # 0.1 10^3/uL (0.0-0.5); EOS % 1.3 % (0.0-3.0); HEMATOCRIT 29.5 % (36.0-47.0); LYMPH # 1.2 10^3/uL (1.5-5.0); LYMPH % 27.6 % (24.0-44.0); MEAN CORPUSCULAR HEMOGLOBIN 27.2 pg (27.0-33.0); MEAN CORPUSCULAR HGB CONC 33.9 g/dl (32.0-36.5); MEAN CORPUSCULAR VOLUME 80.2 fl (80.0-96.0); MONO # 0.4 10^3/uL (0.0-0.8); MONO % 8.9 % (0.0-5.0); NEUTROPHILS # 2.8 10^3/uL (1.5-8.5); NEUTROPHILS % 61.1 % (36.0-66.0); PLATELET COUNT, AUTOMATED 273 10^3/uL (150-450); RED BLOOD COUNT 3.68 10^6/uL (4.00-5.40); WHITE BLOOD COUNT 4.5 10^3/uL (4.0-10.0)
[2019-06-22] MEDS: MAG SULF 1GM/100ML (MAG RUN) 1 GM in IV 1 EA IV SCH ×2 (07:36→09:04)
[2019-06-22] MEDS: METOCLOPRAMIDE INJ 10MG/2ML VIAL (J2765 PER 1) IV PRN ×2 (07:38→16:56)
[2019-06-22] MEDS: SUCRALFATE SUSP 1GM/10ML UD PO SCH ×4 (07:38→21:33)
[2019-06-22] MEDS: PRENATAL VITAMINS CHEWABLE TABLET PO SCH (09:04)
[2019-06-22] MEDS: POTASSIUM CHLORIDE 10 MEQ SR TABLET PO SCH (09:04)
[2019-06-22] MEDS: DOCUSATE SODIUM 100 MG CAP PO SCH (09:04)
[2019-06-22] MEDS: FAMOTIDINE 20 MG TAB PO SCH ×2 (09:04→21:33)
--- NOTE | 2019-06-22 09:10 | IPNPDOC ---
Text Note Date of Service The patient was seen on 06/22/19. NOTE Subjective: Patient is a 23-year-old female who is 17 weeks (B7N5-1-7-1) with a PMHx of Asthma, Follicular Nodular Hyperplasia, Hx of Pancreatitis who presented to the emergency room with complaints of nausea, vomiting and abdominal pain. Patient was ultimately admitted for abdominal pain, suspected to be from pancreatitis. Hospitalist service was consulted on 06/21/2019 for further assistance in fluid management. Patient was seen and examined at the bedside. Patient reports that her pain has had some improvement. She does not experience any significant vomiting. Denies a chest pain, shortness breath, palpitations. Denies any urinary discomfort. Objective: Vitals (See below) General: Lying in bed, appears comfortable upon walking into room, AAOx3 HEENT: NC, AT CVS: +S1S2 Lungs: Fair air entry b/l, no appreciable wheezing, rhonchi or crackles Abdomen: Soft, nondistended, tenderness at epigastrium, obese Extremities: No evidence of lower extremity edema, - Calf tenderness Assessment and plan: Abdominal pain - likely 2/2 acute pancreatitis, possibly 2/2 gastritis, possibly 2/2 hyperemesis gravidarum, possibly 2/2 cyclic vomiting syndrome - Clinically still reports some nausea, vomiting, abdominal discomfort, has had some improvement in pain - Blood pressure remains stable and no fevers have been documented - Epigastric tenderness is still noted - Lipase was noted to be elevated at 1111; triglyceride levels not significantly elevated - UDS on 06/15 and 06/19 positive for Cannabinoids - Liver US 06/15: Negative right upper quadrant sonography post cholecystectomy. Normal CBD 5 mm. - MRCP 06/15: Normal MRCP exam. No biliary or pancreatic ductal dilation is seen. Gallbladder surgically absent. - Patient meets diagnosis criteria for acute pancreatitis (at least 2 out of 3 characteristics) - Will c/w stirct NPO, aggressive IV fluid hydration - Symptomatic control with Morphine / Zofran / Reglan - Will reevaluate starting diet on 06/23/2019 AM s/p Hypokalemia - c/w Potassium supplementation in IV fluids - Repeat BMP at 8PM Hypomagnesemia - Will supplement via IV route - 17 weeks - Currently being managed by [employer] primary team - Discussed with primary team; patient will have an pelvic ultrasound evaluation completed today Asthma - No evidence of exacerbation at this time - c/w inhaled therapy as ordered Follicular Nodular Hyperplasia Gastrointestinal prophylaxis - c/w Protonix / Carafate DVT prophylaxis - c/w TEDs / Sequentials VS,Fishbone, I+O VS, Primobone, I+O Laboratory Tests 06/21/19 12:01 06/21/19 20:02 06/22/19 05:11 06/22/19 05:14 Vital Signs Date Time Temp Pulse Resp B/P (MAP) Pulse Ox O2 Delivery O2 Flow Rate FiO2 06/22/19 06:00 98.6 79 16 107/68 (81) 100 Room Air I&O- Last 24 Hours up to 6 AM 06/22/19 05:59 Intake Total 4150 ml Output Total 3350 ml Balance 800 ml CLAUS NJ MD June 22, 2019 09:10
[2019-06-22 14:00] VITALS: BP 106/68
[2019-06-22 22:00] VITALS: BP 109/68
[2019-06-23] MEDS: METOCLOPRAMIDE INJ 10MG/2ML VIAL (J2765 PER 1) IV PRN ×3 (00:05→18:59)
[2019-06-23] MEDS: KCL 40MEQ in NS 1000ML 1,000 ML IV SCH ×2 (00:09→04:51)
[2019-06-23 06:00] VITALS: BP 113/69
[2019-06-23] MEDS: PANTOPRAZOLE 40MG VIAL (C9113 PER 1) IV SCH (06:05)
[2019-06-23] MEDS: SUCRALFATE SUSP 1GM/10ML UD PO SCH ×4 (07:35→21:00)
[2019-06-23 07:39] LABS: BASO % 0.6 % (0.0-1.0); EOS % 0.8 % (0.0-3.0); HEMATOCRIT 32.3 % (36.0-47.0); HEMOGLOBIN 10.8 g/dl (12.0-15.5); LYMPH # 0.9 10^3/uL (1.5-5.0); LYMPH % 17.4 % (24.0-44.0); MEAN CORPUSCULAR HEMOGLOBIN 26.9 pg (27.0-33.0); MEAN CORPUSCULAR HGB CONC 33.4 g/dl (32.0-36.5); MEAN CORPUSCULAR VOLUME 80.3 fl (80.0-96.0); MONO # 0.3 10^3/uL (0.0-0.8); MONO % 5.3 % (0.0-5.0); NEUTROPHILS # 3.7 10^3/uL (1.5-8.5); NEUTROPHILS % 75.3 % (36.0-66.0); PLATELET COUNT, AUTOMATED 282 10^3/uL (150-450); RED BLOOD COUNT 4.02 10^6/uL (4.00-5.40); WHITE BLOOD COUNT 4.9 10^3/uL (4.0-10.0)
[2019-06-23 08:05] LABS: ALT/SGPT 59 U/L (12-78); BILIRUBIN,TOTAL 0.3 MG/DL (0.2-1.0); BLOOD UREA NITROGEN 2 MG/DL (7-18); CALCIUM LEVEL 8.7 MG/DL (8.5-10.1); CARBON DIOXIDE LEVEL 18 MEQ/L (21-32); CHLORIDE LEVEL 106 MEQ/L (98-107); CREATININE FOR GFR 0.34 MG/DL (0.55-1.30); GLOMERULAR FILTRATION RATE > 60.0 (>60); GLUCOSE, FASTING 63 MG/DL (70-100); MAGNESIUM LEVEL 1.6 MG/DL (1.8-2.4); POTASSIUM SERUM 4.5 MEQ/L (3.5-5.1); SODIUM LEVEL 134 MEQ/L (136-145); TOTAL PROTEIN 6.4 GM/DL (6.4-8.2)
[2019-06-23] MEDS: MAG SULF 1GM/100ML (MAG RUN) 1 GM in IV 1 EA IV SCH ×2 (08:30→09:44)
[2019-06-23] MEDS: POTASSIUM CHLORIDE 10 MEQ SR TABLET PO SCH (08:30)
[2019-06-23] MEDS: FAMOTIDINE 20 MG TAB PO SCH ×2 (08:31→21:00)
[2019-06-23] MEDS: PRENATAL VITAMINS CHEWABLE TABLET PO SCH (08:31)
[2019-06-23] MEDS: DOCUSATE SODIUM 100 MG CAP PO SCH (08:31)
--- NOTE | 2019-06-23 10:22 | IPNPDOC ---
Text Note Date of Service The patient was seen on 06/23/19. NOTE Subjective: Patient is a 23-year-old female who is 17 weeks (I2Z8-3-7-3) with a PMHx of Asthma, Follicular Nodular Hyperplasia, Hx of Pancreatitis who presented to the emergency room with complaints of nausea, vomiting and abdominal pain. Patient was ultimately admitted for abdominal pain, suspected to be from pancreatitis. Hospitalist service was consulted on 06/21/2019 for further assistance in fluid management. Patient was seen and examined at the bedside. . Currently, patient reports that she has not experienced any significant abdominal pain has excretes some nausea that has required use of antiemetics. She denies any vomiting. Denies chest pa in, shortness breath or palpitations. She reports that she is ready to try a clear liquid diet. Denies any urinary discomfort. Objective: Vitals (See below) General: Sitting up in bed and is comfortable, AAOx3 HEENT: NC, AT CVS: +S1S2 Lungs: There appears to be fair air entry bilaterally without evidence of rhonchi, wheezing or crackles Abdomen: Abdomen remains soft, without any distention or tenderness noted today Extremities: Lower extremities are free of any pitting edema, - Calf tenderness Assessment and plan: s/p Abdominal pain - likely 2/2 acute pancreatitis, possibly 2/2 gastritis, possibly 2/2 hyperemesis gravidarum, possibly 2/2 cyclic vomiting syndrome - Patient has had complete resolution of her abdominal pain. Reports some nausea without vomiting - Hemodynamically stable and afebrile - No abdominal tenderness - Lipase was noted to be elevated at 1111; triglyceride levels not significantly elevated - UDS on 06/15 and 06/19 positive for Cannabinoids - Liver US 06/15: Negative right upper quadrant sonography post cholecystectomy. Normal CBD 5 mm. - MRCP 06/15: Normal MRCP exam. No biliary or pancreatic ductal dilation is seen. Gallbladder surgically absent. - Will discontinue IV fluid hydration, stop morphine; continue with anti-emetics as needed - Patient will be started on a clear liquid diet with instructions to advance very slowly - I discussed with the patient and primary team about these plans; Hospitalist service will sign off s/p Hypokalemia Hypomagnesemia - Will supplement via IV again today - 17 weeks - Currently being managed by [employer] primary team - Discussed with primary team; patient will have an pelvic ultrasound evaluation completed today Asthma - No evidence of exacerbation at this time - c/w inhaled therapy as ordered Follicular Nodular Hyperplasia Gastrointestinal prophylaxis - c/w Protonix / Carafate; will change to PO form DVT prophylaxis - c/w TEDs / Sequentials Disposition: - Hospitalist team will sign off - Thank you for this consultation VS,Fishbone, I+O VS, Fishbone, I+O Laboratory Tests 06/23/19 07:22 Vital Signs Date Time Temp Pulse Resp B/P (MAP) Pulse Ox O2 Delivery O2 Flow Rate FiO2 06/23/19 06:00 98.0 68 18 113/69 (84) 100 Room Air I&O- Last 24 Hours up to 6 AM 06/23/19 06:00 Intake Total 3000 ml Output Total 4550 ml Balance -1550 ml CLAUS NJ MD June 23, 2019 10:22
[2019-06-23] MEDS ORDERED: CARA1TAB6 PO (10:23)
[2019-06-23 14:00] VITALS: BP 113/71
[2019-06-23] MEDS: PANTOPRAZOLE 40MG TAB (PROTONIX) PO SCH (21:00)
[2019-06-23 22:00] VITALS: BP 114/71
[2019-06-24] MEDS: METOCLOPRAMIDE INJ 10MG/2ML VIAL (J2765 PER 1) IV PRN (05:07)
[2019-06-24 06:00] VITALS: BP 130/88
[2019-06-24] MEDS: POTASSIUM CHLORIDE 10 MEQ SR TABLET PO SCH (08:41)
[2019-06-24] MEDS: SUCRALFATE SUSP 1GM/10ML UD PO SCH (08:41)
[2019-06-24] MEDS: FAMOTIDINE 20 MG TAB PO SCH (08:41)
[2019-06-24] MEDS: PRENATAL VITAMINS CHEWABLE TABLET PO SCH (08:41)
[2019-06-24] MEDS: PANTOPRAZOLE 40MG TAB (PROTONIX) PO SCH (08:41)
[2019-06-24] MEDS: DOCUSATE SODIUM 100 MG CAP PO SCH (08:43)
== END 2019-06-24 10:42 | disposition home or self-care (01) | DRG 566 ==
LOC: M ED 11:00 → M PED 11:01 → ENRESERV 16:03 → M PED 16:50 → M MSPAV 06-21 10:12 → OBSVTOIN 06-22 10:52
PROVIDERS: ADMIT Obstetrics & Gynecology; ATTEND Obstetrics & Gynecology
DX: O99.612 Diseases of the digestive system complicating pregnancy, second trimester (principal); K85.90 Acute pancreatitis without necrosis or infection, unspecified; E83.42 Hypomagnesemia; J45.909 Unspecified asthma, uncomplicated; O99.342 Other mental disorders complicating pregnancy, second trimester; F31.9 Bipolar disorder, unspecified; F43.10 Post-traumatic stress disorder, unspecified; E87.6 Hypokalemia; Z87.891 Personal history of nicotine dependence; Z79.899 Other long term (current) drug therapy; O99.512 Diseases of the respiratory system complicating pregnancy, second trimester; O99.282 Endocrine, nutritional and metabolic diseases complicating pregnancy, second trimester

== ENCOUNTER → 2019-07-03 | Outpatient (CLI) | payer OTHER ==
[~2019-07-03] MED LIST changes: +CARA1TAB6 PO; +FAMO1TAB11 PO; +METO10TA2 PO; +ONDA-83 PO
== END ==
LOC: M WHC 15:22
PROVIDERS: ATTEND Obstetrics & Gynecology
DX: O09.42 Supervision of pregnancy with grand multiparity, second trimester (principal)

== ENCOUNTER → 2019-07-04 | Outpatient (CLI) | payer OTHER ==
--- NOTE | 2019-07-05 01:50 | REP ---
Clinical: Anatomical evaluation. Comparison: 05/01/2019 . Findings: Examination demonstrates a single live intrauterine in transverse (head to maternal right) presentation. motion is identified by technologist. Placenta is noted posterior and grade I without evidence for placenta previa or abruption. Amniotic fluid volume is normal. Cervix measures 3.6 cm in length and appears closed. No evidence for nuchal cord. Gestational age by LMP 18 weeks 4 days with GARETT 12/01/2019 . Gestational age by current measurements 18 weeks 2 days with GARETT 12/03/2019 . FHR equals 144 beats per minute. BPD 3.9 cm 18 weeks 0 days HC 14.8 cm 18 weeks 0 days AC 12.9 cm 18 weeks 3 days FL 2.9 cm 19 weeks 0 days HL 2.8 cm 19 weeks 0 days HC/AC ratio 1.15 Estimated weight 249 grams ( 47th percentile). Anatomical assessment demonstrates normal structures including cranium, choroid plexus, cavum, cerebellum/posterior fossa, facial features, lungs, four-chamber heart, diaphragm, stomach, cord insertion/three-vessel cord, kidneys/bladder, spine, and extremities. Limited evaluation of the cardiac ventricular outflow tracts due to positioning. Impression: Single live intrauterine in transverse lie demonstrating appropriate interval growth. Limited evaluation of the cardiac ventricular outflow tracts. Remainder of the anatomical assessment is complete and normal.
== END ==
LOC: M PLAIMG 15:08
PROVIDERS: ATTEND Obstetrics & Gynecology
DX: O09.42 Supervision of pregnancy with grand multiparity, second trimester (principal); Z3A.18 18 weeks gestation of pregnancy; O32.2XX0 Maternal care for transverse and oblique lie, not applicable or unspecified

== ENCOUNTER 2019-07-13 02:47 | Emergency (ER) | payer OTHER ==
[~2019-07-13] VITALS: Ht 154.9 cm; Wt 92.6 kg
[~2019-07-13 02:47] MED LIST changes: -ONDA-83 PO
[2019-07-13 02:48] VITALS: BP 114/75
[2019-07-13] MEDS ORDERED: ONDA-83 PO (03:24)
== END 2019-07-13 03:01 | disposition left against medical advice (07) ==
LOC: M ED 02:47
DX: Z53.21 Procedure and treatment not carried out due to patient leaving prior to being seen by health care provider (principal)

== ENCOUNTER 2019-07-13 03:01 | Outpatient (CLI) | payer OTHER ==
[~2019-07-13] VITALS: Ht 154.9 cm; Wt 92.6 kg
[2019-07-13] MEDS ORDERED: ONDA-83 PO (03:24)
[2019-07-13 03:29] VITALS: BP 95/50
[2019-07-13 03:40] VITALS: BP 114/75
[2019-07-13 05:34] LABS: CHLAMYDIA DNA AMPLIFICATION POSITIVE (NEGATIVE); GC DNA AMPLIFICATION NEGATIVE (NEGATIVE)
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
== END 2019-07-13 04:01 | disposition home or self-care (01) ==
LOC: M LDO 03:01
PROVIDERS: ATTEND Advanced Practice Midwife
DX: Z04.3 Encounter for examination and observation following other accident (principal); O26.892 Other specified pregnancy related conditions, second trimester; M62.838 Other muscle spasm; M54.5 Low back pain; R10.30 Lower abdominal pain, unspecified; V49.50XA Passenger injured in collision with unspecified motor vehicles in traffic accident, initial encounter; Z3A.20 20 weeks gestation of pregnancy
CPT/HCPCS: 87491; 87591; G0378; G0463

== ENCOUNTER 2019-07-25 16:25 | Emergency (ER) | payer OTHER ==
[~2019-07-25] VITALS: Ht 154.9 cm; Wt 91.2 kg
[~2019-07-25 16:25] MED LIST changes: +ONDA-83 PO
[2019-07-25] MEDS ORDERED: LIDOCAINE 2% MDV 20ML VIAL SC ONE (17:30)
[2019-07-25] MEDS ORDERED: ACETAMINOPHEN 500 MG TAB PO ONE (19:15)
--- NOTE | 2019-07-25 19:15 | REPVR ---
PROCEDURE INFORMATION: Exam: CT Maxillofacial Without Contrast Exam date and time: 07/25/2019 6:52 PM Age: 24 years old Clinical indication: Injury or trauma; Fall; Initial encounter; Blunt trauma (contusions or hematomas); Orbit/periorbital; Left; Additional info: Trauma to left eye, 22wks preg swelling, R/O FX TECHNIQUE: Imaging protocol: Computed tomography images of the face without contrast. Radiation optimization: All CT scans at this facility use at least one of these dose optimization techniques: automated exposure control; mA and/or kV adjustment per patient size (includes targeted exams where dose is matched to clinical indication); or iterative reconstruction. COMPARISON: No relevant prior studies available. FINDINGS: Asymmetric left periorbital and paranasal soft tissue edema/hematoma is present. Mandible is intact and the TMJ's align normally. Maxilla, hard palate and pterygoid plates are intact. Zygomaticomaxillary complexes and zygomatic arches appear normal. Paranasal sinuses show no acute fracture. Small dependent fluid level in the left maxillary sinus. Mastoid air cells are normally aerated. Acute medially displaced left lamina papyracea fracture. No other orbital fracture Orbital soft tissues are unremarkable. No intraconal hemorrhage No acute nasal bone or nasal septal fracture. Visualized skull base structures are unremarkable. Posterior nasopharynx soft tissues are symmetric. IMPRESSION: Left periorbital and paranasal facial soft tissue swelling with underlying acute appearing left lamina papyracea fracture displaced medially. No other acute facial fracture. Electronically signed by: Lee Paredes On 07/25/2019 19:14:36 PM
[2019-07-25 19:28] VITALS: BP 131/69
== END 2019-07-25 19:29 | disposition left against medical advice (07) ==
LOC: M ED 16:25
DX: O9A.212 Injury, poisoning and certain other consequences of external causes complicating pregnancy, second trimester (principal); S01.81XA Laceration without foreign body of other part of head, initial encounter; Y04.8XXA Assault by other bodily force, initial encounter; Y92.410 Unspecified street and highway as the place of occurrence of the external cause; Z3A.22 22 weeks gestation of pregnancy; O99.512 Diseases of the respiratory system complicating pregnancy, second trimester; J45.909 Unspecified asthma, uncomplicated; Z91.040 Latex allergy status

== ENCOUNTER → 2019-07-26 | Outpatient (REF) | payer OTHER | LOC: M SFHCWAGY 17:00 | PROVIDERS: ATTEND Advanced Practice Midwife | DX: Z3A.22 22 weeks gestation of pregnancy (principal) ==

== ENCOUNTER 2019-10-08 11:46 | Outpatient (CLI) | payer OTHER ==
[~2019-10-08] VITALS: Ht 154.9 cm; Wt 87.2 kg
[2019-10-08 12:04] VITALS: BP 135/76
[2019-10-08] MEDS ORDERED: LR 1,000 ML IV ONE (12:30)
[2019-10-08] MEDS ORDERED: PROMETHAZINE INJ 25 MG/ML VIAL (J2550) IV ONE ×2 (12:30→19:30)
[2019-10-08] MEDS ORDERED: MORPHINE 4 MG/ML 1ML VIAL/SYRINGE (J2270) IV ONE (15:30)
[2019-10-08] MEDS ORDERED: MORPHINE 10 MG/ML 1ML VIAL (J2270) SC ONE ×2 (15:30→20:30)
[2019-10-08] MEDS: METOCLOPRAMIDE INJ 10MG/2ML VIAL (J2765 PER 1) IV PRN ×2 (15:35→22:55)
[2019-10-08 16:23] LABS: HEMOGLOBIN 9.9 g/dl (12.0-15.5); MEAN CORPUSCULAR HEMOGLOBIN 25.4 pg (27.0-33.0); MEAN CORPUSCULAR HGB CONC 31.9 g/dl (32.0-36.5); MEAN CORPUSCULAR VOLUME 79.5 fl (80.0-96.0); PLATELET COUNT, AUTOMATED 264 10^3/uL (150-450); WHITE BLOOD COUNT 5.6 10^3/uL (4.0-10.0)
[2019-10-08 17:15] LABS: ALBUMIN 2.9 GM/DL (3.2-5.2); ALT/SGPT 14 U/L (12-78); AMYLASE 64 U/L (25-115); BILIRUBIN,TOTAL 0.3 MG/DL (0.2-1.0); BLOOD UREA NITROGEN 4 MG/DL (7-18); CALCIUM LEVEL 8.8 MG/DL (8.5-10.1); CARBON DIOXIDE LEVEL 22 MEQ/L (21-32); CHLORIDE LEVEL 108 MEQ/L (98-107); CREATININE FOR GFR 0.57 MG/DL (0.55-1.30); GLOMERULAR FILTRATION RATE > 60.0 (>60); GLUCOSE, FASTING 108 MG/DL (70-100); LIPASE 117 U/L (73-393); POTASSIUM SERUM 3.6 MEQ/L (3.5-5.1); SODIUM LEVEL 141 MEQ/L (136-145); TOTAL PROTEIN 7.1 GM/DL (6.4-8.2)
[2019-10-08 19:58] VITALS: BP 133/79
[2019-10-08] MEDS ORDERED: MORPHINE 10 MG/ML 1ML VIAL (J2270) IV ONE (20:30)
[2019-10-08 23:14] VITALS: BP 111/63
[2019-10-09 04:29] VITALS: BP 118/66
[2019-10-09] MEDS: METOCLOPRAMIDE INJ 10MG/2ML VIAL (J2765 PER 1) IV PRN (04:49)
[2019-10-09 07:45] VITALS: BP 123/67
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
[2019-10-09] MEDS ORDERED: PROM25TA12 PO (08:02)
[2019-10-09] MEDS ORDERED: MORPHINE 10 MG/ML 1ML VIAL (J2270) IV PRN (19:45)
[2019-10-09] MEDS ORDERED: ONDANSETRON 4MG/2ML VIAL IV SCH (21:00)
[2019-10-09] MEDS ORDERED: PRENTAB9 PO (21:08)
== END 2019-10-09 09:08 | disposition home or self-care (01) ==
LOC: M LDO 11:46
PROVIDERS: ATTEND Obstetrics & Gynecology
DX: O99.613 Diseases of the digestive system complicating pregnancy, third trimester (principal); O99.343 Other mental disorders complicating pregnancy, third trimester; O99.513 Diseases of the respiratory system complicating pregnancy, third trimester; O99.323 Drug use complicating pregnancy, third trimester; O09.213 Supervision of pregnancy with history of pre-term labor, third trimester; F43.10 Post-traumatic stress disorder, unspecified; F31.9 Bipolar disorder, unspecified; F41.9 Anxiety disorder, unspecified; F12.10 Cannabis abuse, uncomplicated; J45.909 Unspecified asthma, uncomplicated; Z3A.32 32 weeks gestation of pregnancy
CPT/HCPCS: 36415; 59025; 80053; 82150; 83690; 85027; 96372; 96374; 96375; 96376; J2270; J2765

== ENCOUNTER 2019-10-09 19:34 | Outpatient (CLI) | payer OTHER ==
[~2019-10-09] VITALS: Ht 154.9 cm; Wt 87.2 kg
[2019-10-09 19:58] VITALS: BP 128/84
[2019-10-09] MEDS ORDERED: PROMETHAZINE INJ 25 MG/ML VIAL (J2550) IM ONE (20:15)
[2019-10-09] MEDS ORDERED: METOCLOPRAMIDE INJ 10MG/2ML VIAL (J2765 PER 1) IV ONE (20:15)
[2019-10-09] MEDS ORDERED: LR 1,000 ML IV ONE (20:15)
[2019-10-09] MEDS ORDERED: MORPHINE 10 MG/ML 1ML VIAL (J2270) SC ONE (20:15)
[2019-10-09] MEDS ORDERED: MORPHINE 10 MG/ML 1ML VIAL (J2270) IM ONE (20:15)
[2019-10-09 20:34] VITALS: BP 135/87
[2019-10-09] MEDS: MORPHINE 10 MG/ML 1ML VIAL (J2270) IV PRN (20:35)
[2019-10-09 20:54] LABS: HEMATOCRIT 29.4 % (36.0-47.0); HEMOGLOBIN 9.5 g/dl (12.0-15.5); MEAN CORPUSCULAR HEMOGLOBIN 25.3 pg (27.0-33.0); MEAN CORPUSCULAR HGB CONC 32.3 g/dl (32.0-36.5); MEAN CORPUSCULAR VOLUME 78.2 fl (80.0-96.0); PLATELET COUNT, AUTOMATED 285 10^3/uL (150-450); RED BLOOD COUNT 3.76 10^6/uL (4.00-5.40); WHITE BLOOD COUNT 5.6 10^3/uL (4.0-10.0)
[2019-10-09] MEDS ORDERED: PROMETHAZINE INJ 25 MG/ML VIAL (J2550) IV ONE (21:00)
[2019-10-09] MEDS ORDERED: PRENTAB9 PO (21:08)
[2019-10-09 21:15] VITALS: BP 127/70
[2019-10-09 21:17] LABS: ALBUMIN 3.1 GM/DL (3.2-5.2); ALT/SGPT 19 U/L (12-78); AMYLASE 112 U/L (25-115); BILIRUBIN,TOTAL 0.5 MG/DL (0.2-1.0); BLOOD UREA NITROGEN 3 MG/DL (7-18); CALCIUM LEVEL 9.3 MG/DL (8.5-10.1); CARBON DIOXIDE LEVEL 20 MEQ/L (21-32); CHLORIDE LEVEL 106 MEQ/L (98-107); CREATININE FOR GFR 0.55 MG/DL (0.55-1.30); GLOMERULAR FILTRATION RATE > 60.0 (>60); GLUCOSE, FASTING 88 MG/DL (70-100); LIPASE 258 U/L (73-393); POTASSIUM SERUM 3.4 MEQ/L (3.5-5.1); SODIUM LEVEL 139 MEQ/L (136-145); TOTAL PROTEIN 7.4 GM/DL (6.4-8.2)
[2019-10-09 21:38] VITALS: BP 124/80
[2019-10-09 22:00] LABS: AMPHETAMINES URINE REFLEX NEGATIVE (NEGATIVE); BARBITURATES URINE REFLEX NEGATIVE (NEGATIVE); BENZODIAZEPINES URINE REFLEX NEGATIVE (NEGATIVE); COCAINE METABOLITE URINE REFLE NEGATIVE (NEGATIVE); METHADONE URINE REFLEX NEGATIVE (NEGATIVE); PHENCYCLIDINE URINE REFLEX NEGATIVE (NEGATIVE)
[2019-10-09] MEDS ORDERED: ONDANSETRON 4MG/2ML VIAL IV SCH (22:00)
[2019-10-09 22:08] LABS: CANNABINOIDS URINE REFLEX PENDING CONFIRMATION (NEGATIVE); OPIATES URINE REFLEX PENDING CONFIRMATION (NEGATIVE)
[2019-10-09] MEDS: ONDANSETRON 4MG/2ML VIAL IV PRN (22:08)
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
[2019-10-09 22:38] VITALS: BP 116/79
[2019-10-09 23:38] VITALS: BP 114/72
[2019-10-10] VITALS (16 sets, daily range): BP systolic 110–144; BP diastolic 54–93
--- NOTE | 2019-10-10 00:03 | REPVR ---
PROCEDURE INFORMATION: Exam: US , Limited Exam date and time: 10/09/2019 11:53 PM Age: 24 years old Clinical indication: complicated by abdominal or pelvic pain; Generalized abdominal pain; Third trimester; Gestational age or lmp: 02/24/19; ; Additional info: Severe abdominal pain-look at placenta and adnexa TECHNIQUE: Imaging protocol: Real-time ultrasound of the maternal uterus with image documentation. Exam focused on the clinical indication. COMPARISON: OBS COMPLETE US 2019-07-04 15:19 FINDINGS: Gestation: Living intrauterine gestation. heart rate: heart rate 130 bpm. Placenta: Grossly unremarkable placenta, not well visualized. Amniotic fluid index: Amniotic fluid index 11.8. BIOMETRY: Gestational age (AUA): Clinical gestational age 32 weeks and 5 days. Estimated due date (AUA): Clinical due date 11/29/2019. DOPPLER: Umbilical artery Doppler: Normal resistive index and systolic to diastolic umbilical cord ratio. MATERNAL: Cervix: Closed 3.6 cm cervix. IMPRESSION: 1. Closed 3.6 cm cervix. 2. Amniotic fluid index 11.8. Electronically signed by: Amaury Nguyen On 10/10/2019 00:03:10 AM
[2019-10-10] MEDS: LR 1,000 ML IV SCH ×2 (00:31→05:38)
[2019-10-10] MEDS: ONDANSETRON 4MG/2ML VIAL IV PRN (02:48)
[2019-10-10] MEDS: MORPHINE 10 MG/ML 1ML VIAL (J2270) IV PRN (03:00)
[2019-10-10] MEDS ORDERED: MORPHINE 10 MG/ML 1ML VIAL (J2270) SC ONE (04:45)
[2019-10-10] MEDS ORDERED: PROMETHAZINE INJ 25 MG/ML VIAL (J2550) IV ONE (04:45)
[2019-10-10] MEDS ORDERED: PANTOPRAZOLE 40MG VIAL (C9113 PER 1) IV SCH (09:00)
[2019-10-10] MEDS ORDERED: METOCLOPRAMIDE INJ 10MG/2ML VIAL (J2765 PER 1) IV ONE (09:15)
[2019-10-10] MEDS ORDERED: KCL 40MEQ in NS 1000ML 1,000 ML IV SCH (11:00)
[2019-10-12 12:10] LABS: Cannabinoid Positive (.); Codeine Negative (Cutoff=200); GC Carboxy THC 232 ng/mL (Cutoff=10); GC Morphine 1762 ng/mL (Cutoff=200); Morphine Positive (.); Opiates Positive (.)
== END 2019-10-10 14:45 | disposition left against medical advice (07) ==
LOC: M LDO 19:34
PROVIDERS: ATTEND Advanced Practice Midwife
DX: O99.613 Diseases of the digestive system complicating pregnancy, third trimester (principal); O99.343 Other mental disorders complicating pregnancy, third trimester; O99.513 Diseases of the respiratory system complicating pregnancy, third trimester; O99.323 Drug use complicating pregnancy, third trimester; O09.213 Supervision of pregnancy with history of pre-term labor, third trimester; F43.10 Post-traumatic stress disorder, unspecified; F41.9 Anxiety disorder, unspecified; F31.9 Bipolar disorder, unspecified; F12.10 Cannabis abuse, uncomplicated; Z87.51 Personal history of pre-term labor
CPT/HCPCS: 59025; 76815; 76820; 80053; 80307; 82150; 83690; 85027; 96361; 96372; 96374; 96375; C9113; G0480; J2270; J2405; J2765

== ENCOUNTER → 2020-01-02 | Outpatient (REF) | payer OTHER ==
[~2020-01-02] MED LIST changes: +PRENTAB9 PO
[2020-01-02 17:57] LABS: BASO # 0.1 10^3/uL (0.0-0.2); BASO % 1.4 % (0.0-1.0); EOS % 1.1 % (0.0-3.0); HEMATOCRIT 31.1 % (36.0-47.0); HEMOGLOBIN 8.8 g/dl (12.0-15.5); LYMPH # 1.2 10^3/uL (1.5-5.0); LYMPH % 32.6 % (24.0-44.0); MEAN CORPUSCULAR HEMOGLOBIN 22.1 pg (27.0-33.0); MEAN CORPUSCULAR HGB CONC 28.3 g/dl (32.0-36.5); MEAN CORPUSCULAR VOLUME 77.9 fl (80.0-96.0); MONO # 0.3 10^3/uL (0.0-0.8); MONO % 7.3 % (0.0-5.0); NEUTROPHILS % 57.3 % (36.0-66.0); PLATELET COUNT, AUTOMATED 386 10^3/uL (150-450); RED BLOOD COUNT 3.99 10^6/uL (4.00-5.40); WHITE BLOOD COUNT 3.6 10^3/uL (4.0-10.0)
[2020-01-02 18:12] LABS: ALBUMIN 3.9 GM/DL (3.2-5.2); ALT/SGPT 20 U/L (12-78); AMYLASE 72 U/L (25-115); BILIRUBIN,TOTAL 0.2 MG/DL (0.2-1.0); BLOOD UREA NITROGEN 12 MG/DL (7-18); CALCIUM LEVEL 9.2 MG/DL (8.5-10.1); CARBON DIOXIDE LEVEL 29 MEQ/L (21-32); CHLORIDE LEVEL 108 MEQ/L (98-107); CREATININE FOR GFR 0.76 MG/DL (0.55-1.30); GLOMERULAR FILTRATION RATE > 60.0 (>60); GLUCOSE, FASTING 75 MG/DL (70-100); LIPASE 363 U/L (73-393); POTASSIUM SERUM 4.3 MEQ/L (3.5-5.1); RHEUMATOID FACTOR QUANT 11.4 IU/ML (<15.0); SODIUM LEVEL 141 MEQ/L (136-145); TOTAL PROTEIN 7.4 GM/DL (6.4-8.2)
[2020-01-02 18:51] LABS: ERYTHROCYTE SEDIMENTATION RATE 21 mm/hr (0-20)
[2020-01-05 17:08] LABS: ANTI DS-DNA AB Negative (Negative); ANTINUCLEAR ANTIBODIES DIRECT Negative (Negative)
== END ==
LOC: M LAB REF 16:26
PROVIDERS: ATTEND Physician Assistant
DX: M12.9 Arthropathy, unspecified (principal); K86.1 Other chronic pancreatitis; Z82.69 Family history of other diseases of the musculoskeletal system and connective tissue

== ENCOUNTER → 2020-01-05 | Outpatient (REF) | payer OTHER ==
[2020-01-05 17:05] LABS: BASO # 0.1 10^3/uL (0.0-0.2); BASO % 1.1 % (0.0-1.0); EOS # 0.1 10^3/uL (0.0-0.5); HEMATOCRIT 30.8 % (36.0-47.0); HEMOGLOBIN 8.9 g/dl (12.0-15.5); LYMPH # 1.3 10^3/uL (1.5-5.0); LYMPH % 29.9 % (24.0-44.0); MEAN CORPUSCULAR HEMOGLOBIN 22.9 pg (27.0-33.0); MEAN CORPUSCULAR HGB CONC 28.9 g/dl (32.0-36.5); MEAN CORPUSCULAR VOLUME 79.2 fl (80.0-96.0); MONO # 0.3 10^3/uL (0.0-0.8); MONO % 7.6 % (0.0-5.0); NEUTROPHILS # 2.7 10^3/uL (1.5-8.5); NEUTROPHILS % 59.2 % (36.0-66.0); PLATELET COUNT, AUTOMATED 347 10^3/uL (150-450); RED BLOOD COUNT 3.89 10^6/uL (4.00-5.40); WHITE BLOOD COUNT 4.5 10^3/uL (4.0-10.0)
[2020-01-05 17:45] LABS: PERCENT SATURATION 4.8 % (13.2-45.0)
[2020-01-05 17:49] LABS: FOLATE 4.6 NG/ML
== END ==
LOC: M LAB REF 16:37
PROVIDERS: ATTEND Physician Assistant
DX: D64.9 Anemia, unspecified (principal)

== ENCOUNTER → 2020-01-31 | Outpatient (REF) | payer OTHER ==
[2020-01-31 17:23] LABS: BASO % 1.6 % (0.0-1.0); EOS # 0.1 10^3/uL (0.0-0.5); HEMATOCRIT 30.9 % (36.0-47.0); HEMOGLOBIN 8.9 g/dl (12.0-15.5); LYMPH % 40.5 % (24.0-44.0); MEAN CORPUSCULAR HEMOGLOBIN 22.5 pg (27.0-33.0); MEAN CORPUSCULAR HGB CONC 28.8 g/dl (32.0-36.5); MONO # 0.2 10^3/uL (0.0-0.8); MONO % 7.1 % (0.0-5.0); NEUTROPHILS # 1.2 10^3/uL (1.5-8.5); NEUTROPHILS % 48.8 % (36.0-66.0); PLATELET COUNT, AUTOMATED 339 10^3/uL (150-450); RED BLOOD COUNT 3.96 10^6/uL (4.00-5.40); WHITE BLOOD COUNT 2.5 10^3/uL (4.0-10.0)
== END ==
LOC: M LAB REF 16:21
PROVIDERS: ATTEND Physician Assistant
DX: D50.9 Iron deficiency anemia, unspecified (principal)

== ENCOUNTER → 2020-02-27 | Outpatient (REF) | payer OTHER ==
[2020-02-27 16:26] LABS: BASO # 0.1 10^3/uL (0.0-0.2); BASO % 1.5 % (0.0-1.0); EOS # 0.1 10^3/uL (0.0-0.5); EOS % 3.3 % (0.0-3.0); HEMATOCRIT 29.1 % (36.0-47.0); HEMOGLOBIN 8.5 g/dl (12.0-15.5); LYMPH # 1.1 10^3/uL (1.5-5.0); MEAN CORPUSCULAR HEMOGLOBIN 22.4 pg (27.0-33.0); MEAN CORPUSCULAR HGB CONC 29.2 g/dl (32.0-36.5); MEAN CORPUSCULAR VOLUME 76.8 fl (80.0-96.0); MONO # 0.3 10^3/uL (0.0-0.8); MONO % 8.9 % (0.0-5.0); NEUTROPHILS # 1.8 10^3/uL (1.5-8.5); PLATELET COUNT, AUTOMATED 325 10^3/uL (150-450); RED BLOOD COUNT 3.79 10^6/uL (4.00-5.40); WHITE BLOOD COUNT 3.4 10^3/uL (4.0-10.0)
[2020-02-27 16:58] LABS: ALBUMIN 3.7 GM/DL (3.2-5.2); ALT/SGPT 22 U/L (12-78); BILIRUBIN,TOTAL 0.2 MG/DL (0.2-1.0); BLOOD UREA NITROGEN 16 MG/DL (7-18); CALCIUM LEVEL 8.7 MG/DL (8.5-10.1); CARBON DIOXIDE LEVEL 28 MEQ/L (21-32); CHLORIDE LEVEL 109 MEQ/L (98-107); CREATININE FOR GFR 0.75 MG/DL (0.55-1.30); FERRITIN 15 NG/ML (8-252); GLOMERULAR FILTRATION RATE > 60.0 (>60); GLUCOSE, FASTING 112 MG/DL (70-100); IRON (FE) 16 UG/DL (50-170); POTASSIUM SERUM 4.4 MEQ/L (3.5-5.1); SODIUM LEVEL 141 MEQ/L (136-145); TOTAL IRON BINDING CAPACITY 398 UG/DL (250-450); TOTAL PROTEIN 7.2 GM/DL (6.4-8.2)
== END ==
LOC: M LAB REF 15:59
PROVIDERS: ATTEND Physician Assistant
DX: D50.9 Iron deficiency anemia, unspecified (principal)

== ENCOUNTER → 2020-04-03 | Outpatient (REF) | payer OTHER ==
[2020-04-03 17:53] LABS: BASO # 0.1 10^3/uL (0.0-0.2); BASO % 1.6 % (0.0-1.0); EOS # 0.1 10^3/uL (0.0-0.5); EOS % 3.2 % (0.0-3.0); HEMATOCRIT 30.1 % (36.0-47.0); HEMOGLOBIN 8.8 g/dl (12.0-15.5); LYMPH # 0.9 10^3/uL (1.5-5.0); LYMPH % 30.4 % (24.0-44.0); MEAN CORPUSCULAR HEMOGLOBIN 22.4 pg (27.0-33.0); MEAN CORPUSCULAR HGB CONC 29.2 g/dl (32.0-36.5); MEAN CORPUSCULAR VOLUME 76.6 fl (80.0-96.0); MONO # 0.2 10^3/uL (0.0-0.8); MONO % 5.5 % (2.0-8.0); NEUTROPHILS # 1.8 10^3/uL (1.5-8.5); PLATELET COUNT, AUTOMATED 421 10^3/uL (150-450); RED BLOOD COUNT 3.93 10^6/uL (4.00-5.40); WHITE BLOOD COUNT 3.1 10^3/uL (4.0-10.0)
[2020-04-03 18:18] LABS: ALBUMIN 3.8 GM/DL (3.2-5.2); ALT/SGPT 23 U/L (12-78); BILIRUBIN,TOTAL 0.1 MG/DL (0.2-1.0); BLOOD UREA NITROGEN 18 MG/DL (7-18); CALCIUM LEVEL 8.6 MG/DL (8.5-10.1); CARBON DIOXIDE LEVEL 27 MEQ/L (21-32); CHLORIDE LEVEL 109 MEQ/L (98-107); CREATININE FOR GFR 0.74 MG/DL (0.55-1.30); FERRITIN 9 NG/ML (8-252); GLOMERULAR FILTRATION RATE > 60.0 (>60); GLUCOSE, FASTING 91 MG/DL (70-100); IRON (FE) 22 UG/DL (50-170); PERCENT SATURATION 5.2 % (13.2-45.0); POTASSIUM SERUM 4.3 MEQ/L (3.5-5.1); SODIUM LEVEL 142 MEQ/L (136-145); TOTAL IRON BINDING CAPACITY 421 UG/DL (250-450); TOTAL PROTEIN 7.3 GM/DL (6.4-8.2)
== END ==
LOC: M LAB REF 16:23
PROVIDERS: ATTEND Physician Assistant
DX: D50.9 Iron deficiency anemia, unspecified (principal); Q44.6 Cystic disease of liver